=== PATIENT | female | born 1990 | race Caucasian/White ===

== ENCOUNTER → 2024-12-17 13:30 | Outpatient (CLI) | payer OTHER, SELFPAY ==
--- NOTE | 2024-12-17 13:38 | DI.MRI.S_ITS ---
PROCEDURE: MR ORBITS FACE NECK WO/W CON INDICATIONS: parotid gland swelling TECHNIQUE: Sagittal/axial/coronal T1 spin echo and STIR. After the administration of contrast, axial/coronal/sagittal T1 fast spin echo with fat saturation through the neck. COMPARISON: None. FINDINGS: Image quality: Diagnostic, with note made of motion artifact. Lymph nodes: No enlarged nodes are seen throughout the neck. Vessels: Visualized vasculature appears normal, with normal flow voids and enhancement. Neck spaces: The oropharynx, nasopharynx and pharynx are unremarkable, without mucosal lesions seen. Vocal cords, false vocal cords, pyriform sinuses, epiglottis, vallecula, and tongue base all appear normal. Extramucosal spaces of the neck also appear unremarkable. Glands: The right parotid gland is abnormal. Within its midportion, there is a T2 hyperintense nodule seen, as on series 8, image 16 and on series 4 image 25, measuring 12 x 10 x 17 mm. On postcontrast imaging, this demonstrates relatively intense enhancement. No additional lesions can be seen within either parotid gland. The submandibular glands appear normal. Thyroid gland demonstrates no significant abnormality. Miscellaneous: Visualized brain and orbits appear normal. Lung apices appear clear. Superficial soft tissues appear normal. Visualized sinuses and mastoids appear clear. Bones: Marrow has normal overall signal. IMPRESSION: There is a 17 mm enhancing nodule within the mid right parotid gland. Neoplasm is suspected. Differential diagnosis includes were thin tumor or pleomorphic adenoma. Although less likely, differential diagnosis would also include parotid carcinoma, an abnormal lymph node and metastatic disease. - Further workup is recommended, which may include an ultrasound-guided percutaneous biopsy. No associated enlarged lymph nodes can be seen. Dictated by: Dwight Gregorio M.D. on 12/17/2024 at 14:42 Approved by: Dwight Gregorio M.D. on 12/17/2024 at 14:45
== END ==
LOC: MRI 13:35
PROVIDERS: PCP Naturopath; Referring Provider Naturopath; Visit Provider Naturopath
DX: K11.20 Sialoadenitis, unspecified (principal); K11.9 Disease of salivary gland, unspecified
CPT/HCPCS: 70543; A9579